=== PATIENT | female | born 1990 | race African-American/Black ===

== ENCOUNTER 2017-06-10 11:57 | Emergency (ER) | payer OTHER ==
[~2017-06-10] VITALS: Ht 157.5 cm; Wt 52.0 kg
[~2017-06-10 11:57] MED LIST: CYCL5TAB PO; EXTR500C PO; IBUP-232 PO; METH750T2 PO; NAPR40TA PO
[2017-06-10 12:08] VITALS: BP 152/90; PULSE 99; RESP 24; TEMP 97.8; O2SAT 100
[2017-06-10] MEDS ORDERED: ORPHENADRINE INJ 60 MG/2 ML AMP IM ONE (12:45)
[2017-06-10] MEDS ORDERED: KETOROLAC TROMETHAMINE 60 MG/2 ML (IM) VIAL IM ONE (12:45)
[2017-06-10] MEDS ORDERED: NAPR500T2 PO (12:46)
[2017-06-10] MEDS ORDERED: CYCL5TAB PO (12:46)
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
== END 2017-06-10 13:15 | disposition home or self-care (01) ==
LOC: NEPK 11:57
DX: R52 Pain, unspecified (principal); V89.2XXA Person injured in unspecified motor-vehicle accident, traffic, initial encounter; Y92.410 Unspecified street and highway as the place of occurrence of the external cause
CPT/HCPCS: 96372; 99284; J1885; J2360